=== PATIENT | female | born 1995 | race Caucasian/White ===

== ENCOUNTER 2019-11-27 06:29 | Inpatient (IN) | payer OTHER ==
[2019-11-27] MEDS ORDERED: PRENATAL MULTI1 EAC3 PO (10:06)
[2019-11-27] MEDS ORDERED: IRON325 M1 PO (10:07)
--- NOTE | 2019-11-27 13:08 | PR ---
[facility] [address] [facility] [place], [place] [address] Signed Progress Notes IP Datetime Report Generated by MAYURI: 11/27/2019 13:08 PROGRESS NOTES: [id number] Impression: Reassuring heart rate; Slow Progression of Labor Procedures: Sterile Vag Exam Plan: Continue present management Informed Consent Obtain: Vaginal Delivery; Induction of Labor; Risks, Benefits and Alternatives Discussed VITAL SIGNS: [id number] Vital Signs: Reviewed; Within Normal Limits EXAM: [id number] Dilatation: 4.0 Effacement: 70 Station: -2 Uterine Contractions: q 3 min MEMBRANES: [id number] Membrane Status: Intact Comments: Comfortable after epidural but no real change in her cervix. Will increase pitocin as needed and do further position changes. Fetus A: [id number] FHR Baseline: 140 Variability: Moderate 6-25bpm Accelerations: 15X15 Decelerations: None FHR Category: Category I Presentation: Vertex Comments on Fetus A: No evidence of metabolic acidosis Fetus B: [id number] Signing Physician: Cari Do MD Copies: ~ *Electronically Signed* 11/27/19 1308 CARI DO MD PATIENT NAME: Keli LARA PROGRESS NOTE DATE OF : [birth year] PHYSICIAN: CARI DO MD RPT #: [id number] REPORT IS CONFIDENTIAL AND NOT TO BE RELEASED WITHOUT AUTHORIZATION
--- NOTE | 2019-11-28 11:11 | PR ---
[facility] [address] [facility] [place], [place] [address] Signed PP Progress Notes Datetime Report Generated by MAYURI: 11/28/2019 11:11 SUBJECTIVE: [id number] Pain: Within normal limits Nausea/Vomiting: Denies Bowel Movement: Yes Vital Signs: [id number] Vital Signs: Reviewed; Within Normal Limits EXAM: [id number] Cardiovascular: Not Done Respiratory: Not Done Abdomen/Uterus: Abnormal Lochia: Normal Vulva/Perineum: Not Done Breasts: Not Done CVA Tenderness: Not Done Extremities: Normal Incision: Not Applicable Progress: Normal Exam Comments: Fundus firm, NT @ U-1. H/H 10.9/33.1, WBC 13.3, plat 159k IMPRESSION/PLAN/PROCEDURES: [id number] Impression: Normal progression Plan: Discharge Progress Notes: Doing well. She would like discharge this afternoon. Physically she is doing fine but has a hx of significant mood issues and has declined treatment with antidepressants or pursuing counseling and this is my greatest worry. She is sure she will be fine and is planning on taking placenta capsules. Signing Physician: Cari Do MD Copies: ~ *Electronically Signed* 11/28/19 1111 CARI DO MD PATIENT NAME: Keli LARA PROGRESS NOTE DATE OF : 97 PHYSICIAN: CARI DO MD RPT #: [id number] REPORT IS CONFIDENTIAL AND NOT TO BE RELEASED WITHOUT AUTHORIZATION
== END 2019-11-28 16:55 | disposition home or self-care (01) | DRG 806 ==
LOC: FBC 06:29
PROVIDERS: ADMIT Obstetrics & Gynecology
PROC: 10E0XZZ Delivery of Products of Conception, External Approach (ICD-10-PCS; principal; 2019-11-27)
PROC: 0UQMXZZ Repair Vulva, External Approach (ICD-10-PCS; 2019-11-27)
PROC: 10907ZC Drainage of Amniotic Fluid, Therapeutic from Products of Conception, Via Natural or Artificial Opening (ICD-10-PCS; 2019-11-27)
PROC: 00HU33Z Insertion of Infusion Device into Spinal Canal, Percutaneous Approach (ICD-10-PCS; 2019-11-27)
PROC: 3E0R3BZ Introduction of Anesthetic Agent into Spinal Canal, Percutaneous Approach (ICD-10-PCS; 2019-11-27)
DX: O69.81X0 Labor and delivery complicated by cord around neck, without compression, not applicable or unspecified (principal); O99.324 Drug use complicating childbirth; Z37.0 Single live birth; Z3A.39 39 weeks gestation of pregnancy; O71.82 Other specified trauma to perineum and vulva; O75.89 Other specified complications of labor and delivery; O99.284 Endocrine, nutritional and metabolic diseases complicating childbirth; F32.89 Other specified depressive episodes; E03.9 Hypothyroidism, unspecified; F12.90 Cannabis use, unspecified, uncomplicated; O99.344 Other mental disorders complicating childbirth; F41.9 Anxiety disorder, unspecified; Z86.19 Personal history of other infectious and parasitic diseases; Z91.040 Latex allergy status; Z91.14 Patient's other noncompliance with medication regimen
CPT/HCPCS: 01960; 36415; 85027; A9270; J2210; J2590; J2795; J3010; J7121